=== PATIENT | male | born 1955 ===

== ENCOUNTER → 2023-06-07 15:14 | Outpatient (CLI) | payer MEDICARE, SELFPAY ==
--- NOTE | ~2023-06-07 | MR_ITS ---
EXAMINATION: MR ankle LT wo con DATE: 06/07/2023 16:18 INDICATION: Achilles tendon pain TECHNIQUE: Magnetic resonance imaging (MRI) of the left ankle was performed without intravenous contr ast. Sequences included sagittal, coronal, and axial proton-density weighted fast spin echo without a nd with fat saturation. COMPARISON: None. FINDINGS: Medial ankle ligaments: Age-indeterminate but more likely chronic partial tears of the deep deltoid ligament and anterior por tion of the superficial deltoid ligament. The spring ligament complex is normal. Lateral ankle ligaments: The anterior and posterior inferior tibiofibular ligaments are normal. The anterior talofibular, calc aneofibular and posterior talofibular ligaments are normal. Tendons: Full-thickness tear with 3 cm proximal retraction of the Achilles tendon with fluid likely representi ng hematoma filling the gap between the tear margins. The tear occurs 4.5 cm proximal to the calcanea l insertion with moderate tendinosis extending 3 cm from either side of the tear. Mild tendinopathy o f the peroneus brevis brevis tendon with longitudinal split tear beginning at the level of the retrom alleolar groove and extending 2 cm of the distal insertion. Paranasal and is tendon is normal. The ti bialis anterior and extensor hallucis longus and extensor digitorum longus tendons are normal. The ti bialis posterior, flexor digitorum longus and flexor hallucis longus tendons are normal. Plantar fascia: Small plantar calcaneal spur. There is mild thickening and mild increased signal of the proximal most central component of the plantar aponeurosis the remainder of which appears normal. No adjacent mic ow edema or surrounding soft tissue edema to suggest acute plantar fasciitis. Bones/other: Bone alignment is normal. No fracture or pathologic marrow replacing process. Mild polyarticular oste oarthritis at the left ankle and involving some degree all of the joints in the mid and hindfoot. A f ew small regions of likely associated subarticular edema-like signal changes along the anterior rim o f the tibial plafond and along the both sides of the dorsal margin of the interface between the navic ular and medial cuneiform and at the base of the fifth metatarsal. Fluid: Small ankle joint effusion. Prominent subcutaneous edema at the posterior aspect of the distal calf e xtending caudally about the ankle and over the dorsum of the hindfoot. IMPRESSION: 1. Full-thickness Achilles tendon tear with 3 cm proximal retraction. 2. Age-indeterminate but more likely chronic, partial tears of the deep and anterior superficial delt oid ligaments. 3. Mild polyarticular osteoarthritis at the left ankle, mid and hindfoot. 4. Chronic mild plantar enthesopathy. Reviewed, dictated and finalized at location A. IMPRESSION: 1. Full-thickness Achilles tendon tear with 3 cm proximal retraction. 2. Age-indeterminate but more likely chronic, partial tears of the deep and ant erior superficial deltoid ligaments. 3. Mild polyarticular osteoarthritis at the left ankle, mid and hindfoot. 4. Chronic mild plantar enthesopathy.
== END ==
PROVIDERS: PCP Physician Assistant; Visit Provider Orthopaedic Surgery
DX: S93.422A Sprain of deltoid ligament of left ankle, initial encounter (principal); M19.072 Primary osteoarthritis, left ankle and foot; M77.52 Other enthesopathy of left foot and ankle
CPT/HCPCS: 73721